=== PATIENT | female | born 1940 | race Caucasian/White ===

== ENCOUNTER 2019-07-19 16:57 | Emergency (ER) | payer MEDICARE ==
--- NOTE | 2019-07-19 17:39 | ED ---
Neurological HPI - HPI Summary HPI Summary: The patient is a 79 y/o F presenting to [facility] with a chief complaint of sudden onset blurred vision in the left eye since this morning. She reports that she woke around 0730 and attempted to put her contacts in when she noticed that the left eye as blurred. She removed the contact and placed a new one, but this did not resolve the blurriness. She went throughout the day without a contact in the left eye, but she continued to wear one in the right. This afternoon, she continued to have blurred vision and decided to come here. There is no pain in the eye, but there is some discomfort. She denies any other neurological symptoms such as headache, weakness, numbness, tingling, or slurred speech. She has not experienced this before. She notes she used a face mask that surrounded her eyes last night but states she had normal vision then without any pain. PMHx : thyroid disease, appendectomy, tonsillectomy, tubal ligation. Nonsmoker, no EtOH, no substance use. Medications reviewed. Allergies noted. - History of Current Complaint Chief Complaint: EDEyeProblem Stated Complaint: LT EYE BLURRY PER PT Time Seen by Provider: 07/19/19 17:00 Hx Obtained From: Patient Onset/Duration: Sudden Onset, Started hours ago, Still Present Timing: Constant Onset Severity: Mild Current Severity: Mild Pain Intensity: 0 Pain Scale Used: 0-10 Numeric Character: Visual Changes - blurred vision in left eye Aggravating: Nothing Alleviating: Nothing Associated Signs and Symptoms: Positive: Visual Changes - blurred vision left eye. Negative: Headache, Weakness, Pain, Impaired Speech, Numbness - Allergy/Home Medications Allergies/Adverse Reactions: Allergies Allergy/AdvReac Type Severity Reaction Status Date / Time No Known Allergies Allergy Verified 07/19/19 17:02 Home Medications: Home Medications Levothyroxine TAB* [Synthroid 25 MCG TAB*] 07/19/19 [History] PMH/Surg Hx/FS Hx/Imm Hx Endocrine/Hematology History: Reports: Hx Thyroid Disease Denies: Hx Diabetes Cardiovascular History: Denies: Hx Hypercholesterolemia, Hx Hypertension Sensory History: Reports: Hx Contacts or Glasses Opthamlomology History: Reports: Hx Contacts or Glasses - Surgical History Surgical History: Yes Surgery Procedure, Year, and Place: appendectomy, tonsillectomy, tubal ligation - Immunization History Date of Influenza Vaccine: none Infectious Disease History: No Infectious Disease History: Denies: Traveled Outside the [place] in Last 30 Days - Family History Known Family History: Negative: Hypertension, Diabetes - Social History Alcohol Use: None Hx Substance Use: No Substance Use Type: Reports: None Hx Tobacco Use: No Smoking Status (MU): Never Smoked Tobacco Review of Systems Positive: Blurred Vision - left eye Negative: Headache, Weakness, Paresthesia, Numbness, Slurred Speech All Other Systems Reviewed And Are Negative: Yes Physical Exam - Summary Physical Exam Summary: Constitutional: Well-developed, Well-nourished, Alert. (-) Distressed Skin: Warm, Dry HENT: Normocephalic; Atraumatic Eyes: Conjunctiva normal; Left eye no conjunctival injection, PERRL, EOMI, Bedside US shows no retinal detachment or vitreous hemorrhage; Fluorescein in eye without uptake, No foreign body visualized including when eye is everted Neck: Musculoskeletal ROM normal neck. (-) JVD, (-) Stridor, (-) Tracheal deviation Cardio: Rhythm regular, rate normal, Heart sounds normal; Intact distal pulses; Radial pulses are 2+ and symmetric. (-) Murmur Pulmonary/Chest wall: Effort normal. (-) Respiratory distress, (-) Wheezes, (-) Rales Abd: Soft, (-) tenderness, (-) Distension, (-) Guarding, (-) Rebound Musculoskeletal: (-) Edema Lymph: (-) Cervical adenopathy Neuro: Alert, Oriented x3 Psych: Mood and affect Normal Triage Information Reviewed: Yes Vital Signs On Initial Exam: Initial Vitals Temp Pulse Resp BP Pulse Ox 98.6 F 72 18 146/89 99 07/19/19 17:00 07/19/19 17:00 07/19/19 17:00 07/19/19 17:00 07/19/19 17:00 Vital Signs Reviewed: Yes Procedures - Sedation Patient Received Moderate/Deep Sedation with Procedure: No Diagnostics - Vital Signs Vital Signs Temp Pulse Resp BP Pulse Ox 07/19/19 17:00 98.6 F 72 18 146/89 99 - Laboratory Lab Statement: Any lab studies that have been ordered have been reviewed, and results considered in the medical decision making process. Re-Evaluation - Re-Evaluation First Eval Re-Evaluation Time: 17:50 Comment: Patient looked at contact for left eye and realized that part of the contact is missing. She placed a new contact in the eye and is able to see. We will do a visual accuity test, and we will check for FB. Course/Dx - Course Course Of Treatment: Patient is here with blurred vision in the left eye. Patient does not have pain in her eye. Patient had extraocular lungs intact and pupils are equal and reactive to light. Patient had been settled shunt showed no evidence of vitreous hemorrhage or retinal detachment. Patient then place a new contact in her left eye with resolution of her symptoms. Patient had staining of her eye which showed no foreign body or retained partial contact. Given patient's physician is symptoms after putting in a different contact, I do not believe patient is having an ophthalmologic emergency and was discharged with optho f/u. - Diagnoses Provider Diagnoses: Blurred vision, left eye Discharge ED - Sign-Out/Discharge Documenting (check all that apply): Patient Departure - Patient will be discharged home. - Discharge Plan Condition: Stable Disposition: HOME Patient Education Materials: Blurred Vision (ED) Referrals: Bobo Haynes MD [Medical Doctor] - [facility] [Outside] - 3 Days Additional Instructions: Call Dr. Haynes in the morning. Come back for any acutely worsening vision tonight or other concerning symptoms. - Billing Disposition and Condition Condition: STABLE Disposition: Home - Attestation Statements Document Initiated by Fahad: Yes Documenting Scribe: Shahida Snider Provider For Whom Fahad is Documenting (Include Credential): Dr. Feroz Damon MD Scribe Attestation: IShahida, scribed for Dr. Feroz Damon MD on 07/21/19 at 0341. Scribe Documentation Reviewed: Yes Provider Attestation: The documentation as recorded by the Shahida gamble accurately reflects the service I personally performed and the decisions made by me, Dr. Feroz Damon MD Status of Scribe Document: Viewed
[2019-07-19] MEDS ORDERED: Proparacaine 0.5% OPHTH.SOL* 15 ML BTL LEFT EYE ONE (18:28)
[2019-07-19] MEDS ORDERED: Fluorescein Sodium TOPICAL* 1 MG TEST STRIP OPHTHALMIC ONE (18:28)
[2019-07-19 19:18] VITALS: BP 110/78
== END 2019-07-19 19:17 | disposition home or self-care (01) ==
LOC: ED 16:57
DX: H53.8 Other visual disturbances (principal); E03.9 Hypothyroidism, unspecified; Z79.890 Hormone replacement therapy; Z90.89 Acquired absence of other organs; Z98.51 Tubal ligation status
CPT/HCPCS: 99282; A9270-GY